=== PATIENT | female | born 1990 | race Caucasian/White ===

== ENCOUNTER 2017-05-17 13:41 | Outpatient (CLI) | payer OTHER ==
[~2017-05-17] VITALS: Ht 175.3 cm; Wt 115.9 kg
[2017-05-17 13:55] VITALS: BP 135/76; PULSE 67; TEMP 97.9
[2017-05-17] MEDS ORDERED: ZANTAC 150MG T150 MG PO (14:51)
[2017-05-17] MEDS ORDERED: PRENATAL MVI (14:51)
== END 2017-05-17 15:15 | disposition home or self-care (01) ==
LOC: LDRO 13:41 → LDR 13:50 → LDRO 15:15
DX: Z34.03 Encounter for supervision of normal first pregnancy, third trimester (principal); Z3A.38 38 weeks gestation of pregnancy
CPT/HCPCS: OP

== ENCOUNTER 2017-05-24 23:47 | Inpatient (IN) | payer OTHER ==
[~2017-05-24] VITALS: Ht 175.3 cm; Wt 117.7 kg
[~2017-05-24 23:47] MED LIST: PRENATAL MVI; ZANTAC 150MG T150 MG PO
[2017-05-24 23:50] VITALS: TEMP 98.8
[2017-05-25] VITALS (25 sets, daily range): BP systolic 113–151; BP diastolic 55–98; PULSE 66–108; TEMP 98.4–98.9
[2017-05-25 00:47] LABS: BASO % 0.3 % (0.0-2.0); EOS % 0.2 % (0-4.0); GRAN # 9.3 (1.4-6.5); LYMPH # 2.1 (1.2-3.4); LYMPH % 17.4 % (20.0-51.0); MEAN CELL VOLUME 88 fl (80.0-100.0); MEAN CORPUSCULAR HGB CONC 35 g/dl (33.0-37.0); MEAN PLATELET VOLUME 11.7 fl (7.4-10.4); MONO # 0.7 (0.1-0.6); MONO % 5.6 % (1.7-9.3); PLATELET COUNT 218 K/mm3 (130-400); RED BLOOD COUNT 3.83 M/mm3 (4.10-5.30); REDCELL DISTRIBUTION WIDTH-CV 13.5 % (11.5-14.5); WHITE BLOOD COUNT 12.3 K/mm3 (4.8-10.8)
[2017-05-25 00:57] LABS: HEMATOCRIT 33.6 % (37.0-47.0); HEMOGLOBIN 11.9 g/dl (12.5-16.0); MEAN CORPUSCULAR HEMOGLOBIN 31 pg (27.0-31.0)
[2017-05-26 07:11] VITALS: BP 120/66; PULSE 91; TEMP 97.5
[2017-05-26 21:10] VITALS: BP 124/72; PULSE 93; TEMP 98.4
[2017-05-27 08:00] VITALS: BP 128/67; PULSE 89; TEMP 98
[2017-05-27] MEDS ORDERED: MOTRIN 800800 MG/TAB PO (08:44)
[2017-05-27] MEDS ORDERED: PERCOCET 325 MG1 TA2 PO (08:44)
== END 2017-05-27 12:15 | disposition home or self-care (01) | DRG 775 ==
LOC: LDRO 23:47 → LDR 05-25 00:15 → OB 05-25 00:15
PROVIDERS: Student in an Organized Health Care Education/Training Program
PROC: 10E0XZZ Delivery of Products of Conception, External Approach (ICD-10-PCS; principal; 2017-05-25)
PROC: 0KQM0ZZ Repair Perineum Muscle, Open Approach (ICD-10-PCS; 2017-05-25)
DX: O26.843 Uterine size-date discrepancy, third trimester (principal); O13.4 Gestational [pregnancy-induced] hypertension without significant proteinuria, complicating childbirth; O70.1 Second degree perineal laceration during delivery; O69.81X0 Labor and delivery complicated by cord around neck, without compression, not applicable or unspecified; O77.0 Labor and delivery complicated by meconium in amniotic fluid; Z3A.39 39 weeks gestation of pregnancy; Z37.0 Single live birth
CPT/HCPCS: J0595; J2590; J7120